=== PATIENT | female | born 1970 | race Caucasian/White ===

== ENCOUNTER 2021-01-04 08:55 | Day surgery (SDC) | payer OTHER ==
[~2021-01-04] VITALS: Ht 180.3 cm; Wt 90.7 kg
[~2021-01-04 08:55] MED LIST: CYMBALTA60 MG PO; LEVOTHYROXIN75 MCG PO; LORAZEPAM0.5 MG PO; MELOXICAM7.5 MG PO; MORPHINE SUL30 M3 PO; OMEPRAZOLE DR40 MG PO; PREMARIN0.3 MG PO; TIZANIDINE HCL4 M1 PO; TRAZODONE50 MG PO; [UNRECOGNIZED DRUG - OTHER] PO
[2021-01-04 11:25] VITALS: BP 92/53
== END 2021-01-04 11:02 | disposition home or self-care (01) | DRG 392 ==
LOC: ENDO 08:55 → ORM 09:00 → ENDO 11:02
PROVIDERS: ATTEND Surgery
PROC: 0DJ08ZZ Inspection of Upper Intestinal Tract, Via Natural or Artificial Opening Endoscopic (ICD-10-PCS; principal; 2021-01-04)
PROC: 0D5P8ZZ Destruction of Rectum, Via Natural or Artificial Opening Endoscopic (ICD-10-PCS; 2021-01-04)
DX: R13.10 Dysphagia, unspecified (principal); K59.00 Constipation, unspecified; D12.8 Benign neoplasm of rectum; K57.30 Diverticulosis of large intestine without perforation or abscess without bleeding; Z87.891 Personal history of nicotine dependence; Z20.822 Contact with and (suspected) exposure to COVID-19